=== PATIENT | female | born 1955 | race Caucasian/White ===

== ENCOUNTER 2016-08-26 07:56 | Day surgery (SDC) | payer BC ==
[~2016-08-26 07:56] MED LIST: Midazolam 1 MG/ML 2 ML SDV ONE; Propofol 200 MG/20 ML SDV ONE; fentaNYL 100 MCG/2 ML SDV ONE
[2016-08-26] MEDS ORDERED: Glycopyrrolate 0.2 MG/ML 2 ML SYRINGE IVPUSH ONE (08:45)
[2016-08-26] MEDS ORDERED: Dextrose 5%-Lactated Ringers 1,000 ML IV SCH (08:45)
[2016-08-26] MEDS ORDERED: Pantoprazole 40 MG Vial IVPUSH ONE (10:30)
[2016-08-26] MEDS ORDERED: Hydrocortisone Sodium Succinate 100 MG/2 ML SDV IVPUSH PRN (10:37)
[2016-08-26] MEDS ORDERED: diphenhydrAMINE 50 MG/ML SDV IVPUSH PRN (10:38)
[2016-08-26] MEDS ORDERED: Famotidine 20 MG/2 ML SDV IVPUSH PRN (10:39)
[2016-08-26] MEDS ORDERED: Hydrocortisone Sodium Succinate 100 MG/2 ML SDV IVPUSH ONE (10:45)
[2016-08-26] MEDS ORDERED: Sodium Chloride 0.9% 1,000 ML IV SCH (10:45)
[2016-08-26] MEDS ORDERED: Cyanocobalamin (Vitamin B12) 1,000 MCG/ML SDV IM ONE (11:00)
[2016-08-26 13:00] VITALS: BP 124/62
--- NOTE | 2016-08-27 09:42 | OR ---
DATE OF PROCEDURE: 08/26/2016 PREOPERATIVE DIAGNOSIS: Probable upper gastrointestinal bleeding. POSTOPERATIVE DIAGNOSES: Probable gastrointestinal bleeding from bypassed stomach or duodenum. OPERATIVE PROCEDURE: Upper GI endoscopy with biopsy of gastric pouch for CLOtest. ANESTHESIA: IV sedation. INDICATION FOR PROCEDURE: This is a 61-year-old status post Bret-en-Y gastric bypass, presenting with a history of black tarry stools and hemoglobin down in the 6 range. Stools are lightening up in the last few days, and hemoglobin today is 8.9 with a ferritin of 11. The plan will be to proceed with upper GI endoscopy with biopsies as indicated. Potential risks including bleeding and perforation were discussed, and the patient wishes to proceed. NARRATIVE: The patient was taken to the operating room, placed in a left lateral decubitus position. IV sedation was administered, after which the upper GI endoscope was passed orally through the length of the esophagus and into the gastric pouch and from there through the gastric pouch and into the gastrojejunostomy and 20 cm into the Bret limb. Findings were entirely normal on this exam. There are no areas of inflammation, blood or bleeding, and no stricturing identified. Biopsies were obtained from the gastric pouch for CLOtest for H. pylori. Minimal bleeding from the biopsy site was seen, and the procedure was then concluded. The patient was taken to the recovery room in satisfactory condition. The patient with quite reliable history of black stools is probably having some bleeding from the bypassed stomach and duodenum. Given this we will initiate proton pump inhibitor use, we gave her Protonix 40 mg IV in the recovery room and then 40 mg daily and repeating hemoglobin in one week. With the ferritin being 11, it is very difficult, if not impossible, to restore adequate iron levels orally after gastric bypass. Given this, we will give her 500 mg of Ferraheme in ACU and also vitamin B12. We have already started her on Protonix 40 mg a day and Vitron C one tablet daily. She will be following up with the hemoglobin in one week and with Saima Caballero in [facility] in two weeks. Stefan Lau MD /[id number]
== END 2016-08-26 14:00 | disposition home or self-care (01) ==
LOC: JP.SDS 07:56
PROVIDERS: ATTEND Surgery
DX: R19.5 Other fecal abnormalities (principal); I10 Essential (primary) hypertension; E11.9 Type 2 diabetes mellitus without complications; K21.9 Gastro-esophageal reflux disease without esophagitis; E78.5 Hyperlipidemia, unspecified; F32.9 Major depressive disorder, single episode, unspecified; Z98.84 Bariatric surgery status; Z88.1 Allergy status to other antibiotic agents; Z88.8 Allergy status to other drugs, medicaments and biological substances; Z91.09 Other allergy status, other than to drugs and biological substances
CPT/HCPCS: 36415; 43239; 82728; 85027; 87081; C9113; J1720; J2250; J2704; J3010; J3420; J7030; J7040; J7042; Q0138

== ENCOUNTER 2018-06-19 12:25 | Emergency (ER) | payer BC ==
[2018-06-19 13:07] VITALS: BP 163/63
[2018-06-19] MEDS ORDERED: Acetaminophen/HYDROcodone 325-5 MG Tab PO ONE (13:49)
--- NOTE | 2018-06-19 13:55 | EDM.PDOC ---
ED HPI GENERAL MEDICAL PROBLEM - General Chief Complaint: Back Pain or Injury Stated Complaint: BACK PAIN Time Seen by Provider: 06/19/18 13:40 Source of Information: Reports: Patient, Old Records History Limitations: Reports: No Limitations - History of Present Illness INITIAL COMMENTS - FREE TEXT/NARRATIVE: 63 yo female here an exacerbation of chronic low back pain. Has had several lumbar disc herniations. Has had procedures on her back. Recently was moving some heavy bags from her house to the garage and subsequently noted an increase in right sided low back pain and some numbness to the R thigh intermittently. 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 (see below) (Tizanidine, minimal benefit) Lower Back Pain Score (Numeric/FACES): 8 - Related Data Allergies Allergy/AdvReac Type Severity Reaction Status Date / Time adhesive Allergy Rash Verified 08/26/16 08:37 adhesive tape Allergy Rash Verified 08/26/16 08:37 atorvastatin Allergy Cannot Verified 08/26/16 08:37 Remember ciprofloxacin Allergy Cannot Verified 08/26/16 08:37 Remember codeine Allergy Cannot Verified 08/26/16 08:37 Remember influenza virus vaccine, Allergy Cannot Verified 08/26/16 08:37 specific Remember [influenza virus vacc,specific] latex Allergy Cannot Verified 08/26/16 08:37 Remember levofloxacin [From Levaquin] Allergy Cannot Verified 08/26/16 08:37 Remember liraglutide [From Victoza] Allergy Cannot Verified 08/26/16 08:37 Remember metformin Allergy Cannot Verified 08/26/16 08:37 Remember prochlorperazine edisylate Allergy Cannot Verified 08/26/16 08:37 [From Compazine] Remember prochlorperazine maleate Allergy Cannot Verified 08/26/16 08:37 [From Compazine] Remember promethazine Allergy Cannot Verified 08/26/16 08:37 Remember tetracycline Allergy Cannot Verified 08/26/16 08:37 Remember tramadol Allergy Cannot Verified 08/26/16 08:37 Remember Home Meds: Home Meds Acyclovir [Zovirax] 400 mg PO BID 03/28/14 [History] Aspirin/Caffeine [Amanuel Back-Body 500-32.5 mg] 2 tab PO BID PRN 03/28/14 [ History] Cholecalciferol (Vitamin D3) [Vitamin D3] 2,000 units PO DAILY 03/28/14 [History ] Cyanocobalamin (Vitamin B12) [Vitamin B12] 1,000 mcg PO DAILY 03/28/14 [History] Insulin Detemir [Levemir] 12 units SQ BEDTIME 03/28/14 [History] Magnesium Oxide [Magnesium] 400 mg PO DAILY 03/28/14 [History] Multivitamin [Multivitamins] 1 tab PO BID 03/28/14 [History] Triamcinolone Acetonide [Kenalog 0.1% Crm] 1 applic TOP BID PRN 03/28/14 [ History] Vitamin B Complex [B Complex] 1 cap PO DAILY 03/28/14 [History] tiZANidine HCl [Zanaflex] 4 mg PO TID PRN 03/28/14 [History] FLUoxetine [PROzac] 20 mg PO DAILY 08/11/14 [History] Acetaminophen [Tylenol Extra Strength] 1 tab PO Q4H PRN 12/26/14 [History] Chlorpheniramine Maleate [Chlor-Trimeton] 1 tab PO Q4H PRN 12/26/14 [History] Chlorpheniramine/Pseudoephed [Sudogest Cold & Allergy] 1 each PO DAILY 12/26/14 [History] Insulin Aspart [NovoLOG] 1 dose SUBCUT ASDIRECTED 11/29/15 [History] Acetaminophen/HYDROcodone [[place] 325-5 MG] 1 - 2 tab PO Q6H PRN #20 tab [Rx] Carisoprodol [Soma] 350 mg PO QID PRN #20 tablet 06/19/18 [Rx] Past Medical History HEENT History: Reports: Allergic Rhinitis, Sinusitis Other HEENT History: adenoids Cardiovascular History: Reports: High Cholesterol Gastrointestinal History: Reports: Cholelithiasis, Chronic Constipation, Chronic Diarrhea, GERD, Irritable Bowel Syndrome Genitourinary History: Reports: UTI, Recurrent Other Genitourinary History: chronic hematuria, cysts on kidneys and polyps removed frm urethra 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: Endometriosis, Polycystic Ovaries, Musculoskeletal History: Reports: Fibromyalgia, Osteoarthritis, Other (See Below ) Other Musculoskeletal History: R shoulder pain Neurological History: Reports: Migraines Psychiatric History: Reports: Depression Endocrine/Metabolic History: Reports: Diabetes, Type II, Obesity/BMI 30+ Other Endocrine/Metabolic History: takes insulin Hematologic History: Reports: Anemia, B12 Deficiency Other 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, connective tissue disease Dermatologic History: Reports: Other (See Below) Other Dermatologic History: butterfly rash on face after sun exposer - Infectious Disease History Infectious Disease History: Reports: Chicken Pox, Measles, Mumps - Past Surgical History HEENT Surgical History: Reports: Adenoidectomy, Tonsillectomy Cardiovascular Surgical History: Reports: Other (See Below) Other Cardiovascular Surgeries/Procedures: cath GI Surgical History: Reports: Bariatric Procedure, Cholecystectomy, Colonoscopy , EGD Female Surgical History: Reports: Hysterectomy Endocrine Surgical History: Reports: None Neurological Surgical History: Reports: Laminectomy Other Musculoskeletal Surgeries/Procedures:: back surgery 2009 laminectomy Dermatological Surgical History: Reports: None Social & Family History - Tobacco Use Smoking Status *Q: Never Smoker - Caffeine Use Caffeine Use: Reports: Coffee - Recreational Drug Use Recreational Drug Use: No ED ROS GENERAL - Review of Systems Review Of Systems: See Below Constitutional: Reports: No Symptoms Musculoskeletal: Reports: Back Pain (low back on the right. ) Skin: Reports: No Symptoms Neurological: Reports: Numbness (R thigh intermittently) ED EXAM,LOWER BACK PAIN/INJURY - Physical Exam Exam: See Below Exam Limited By: No Limitations General Appearance: Alert, WD/WN, No Apparent Distress Back Exam: Normal Inspection, Decreased Range of Motion, Muscle Spasm (R lumbar paraspinous), Paraspinal Tenderness (R lumbar). No: CVA Tenderness (R), CVA Tenderness (L), Vertebral Tenderness Extremities: Normal Inspection, Normal Range of Motion, Non-Tender, No Pedal Edema Neurological: Alert, Normal Mood/Affect, Normal Dorsiflexion, CN II-XII Intact, No Motor/Sensory Deficits, Oriented x 3 DTR - Lower Extremities: 1+: Knee (R), Knee (L), Ankle (R), Ankle (L) Psychiatric: Normal Affect, Normal Mood Skin Exam: Warm, Dry, Intact, Normal Color, No Rash Course - Vital Signs Last Recorded V/S: Last Vital Signs Temp 36.1 C 06/19/18 13:07 Pulse 83 06/19/18 13:07 Resp 16 06/19/18 13:07 BP 163/63 H 06/19/18 13:07 Pulse Ox 99 06/19/18 13:07 - Orders/Labs/Meds Orders: Active Orders 24 hr Category Date Time Status Acetaminophen/HYDROcodone [[place] 325-5 MG] Med 06/19/18 13:49 Once 1 tab PO ONETIME ONE Departure - Departure Time of Disposition: 13:54 Disposition: Home, Self-Care 01 Condition: Fair Clinical Impression: Acute exacerbation of chronic low back pain - Discharge Information *PRESCRIPTION DRUG MONITORING PROGRAM REVIEWED*: No *COPY OF PRESCRIPTION DRUG MONITORING REPORT IN PATIENT ACNDACE: No Prescriptions: Acetaminophen/HYDROcodone [[place] 325-5 MG] 1 - 2 tab PO Q6H PRN #20 tab PRN Reason: Pain Carisoprodol [Soma] 350 mg PO QID PRN #20 tablet PRN Reason: Pain Instructions: Acute Back Pain, Adult Referrals: PCP,None [Primary Care Provider] - Additional Instructions: Use Soma and [place] as directed. Avoid lifting, bending or twisting. F/U with orthopedics [facility]. Return here as needed. - My Orders Last 24 Hours: My Active Orders 06/19/18 13:49 Acetaminophen/HYDROcodone [[place] 325-5 MG] 1 tab PO ONETIME ONE - Assessment/Plan Last 24 Hours: My Active Orders 06/19/18 13:49 Acetaminophen/HYDROcodone [[place] 325-5 MG] 1 tab PO ONETIME ONE
== END 2018-06-19 14:20 | disposition home or self-care (01) ==
LOC: JP.ED 12:25
DX: M54.5 Low back pain (principal); G89.29 Other chronic pain; Z88.8 Allergy status to other drugs, medicaments and biological substances; Z79.899 Other long term (current) drug therapy; Z79.82 Long term (current) use of aspirin
CPT/HCPCS: 99283; A9270

== ENCOUNTER 2018-08-25 22:33 | Emergency (ER) | payer BC, OTHER ==
[2018-08-25 22:46] VITALS: BP 164/85; PULSE 78
--- NOTE | 2018-08-25 23:08 | EDM.PDOC ---
ED HPI GENERAL MEDICAL PROBLEM - General Chief Complaint: Body Fluid Exposure Stated Complaint: STUCK WITH USED NEEDLE Time Seen by Provider: 08/25/18 23:04 Source of Information: Reports: Patient History Limitations: Reports: No Limitations - History of Present Illness INITIAL COMMENTS - FREE TEXT/NARRATIVE: PT HAS A NEEDLE STICK ON HER LEFT POITER FINGER. sHE HAD GLOVES ON AND THE PT STARTED TO MOVE AND SHE WAS STUCK. Onset: Today, Sudden Location: Reports: Upper Extremity, Left Associated Symptoms: Reports: No Other Symptoms - Related Data Allergies Allergy/AdvReac Type Severity Reaction Status Date / Time adhesive Allergy Rash Verified 08/26/16 08:37 adhesive tape Allergy Rash Verified 08/26/16 08:37 atorvastatin Allergy Cannot Verified 08/26/16 08:37 Remember ciprofloxacin Allergy Cannot Verified 08/26/16 08:37 Remember codeine Allergy Cannot Verified 08/26/16 08:37 Remember influenza virus vaccine, Allergy Cannot Verified 08/26/16 08:37 specific Remember [influenza virus vacc,specific] latex Allergy Cannot Verified 08/26/16 08:37 Remember levofloxacin [From Levaquin] Allergy Cannot Verified 08/26/16 08:37 Remember liraglutide [From Victoza] Allergy Cannot Verified 08/26/16 08:37 Remember metformin Allergy Cannot Verified 08/26/16 08:37 Remember prochlorperazine edisylate Allergy Cannot Verified 08/26/16 08:37 [From Compazine] Remember prochlorperazine maleate Allergy Cannot Verified 08/26/16 08:37 [From Compazine] Remember promethazine Allergy Cannot Verified 08/26/16 08:37 Remember tetracycline Allergy Cannot Verified 08/26/16 08:37 Remember tramadol Allergy Cannot Verified 08/26/16 08:37 Remember Home Meds: Home Meds Cholecalciferol (Vitamin D3) [Vitamin D3] 2,000 units PO DAILY 03/28/14 [History ] Cyanocobalamin (Vitamin B12) [Vitamin B12] 1,000 mcg PO DAILY 03/28/14 [History] Insulin Detemir [Levemir] 12 units SQ BEDTIME 03/28/14 [History] Magnesium Oxide [Magnesium] 400 mg PO DAILY 03/28/14 [History] Multivitamin [Multivitamins] 1 tab PO BID 03/28/14 [History] Triamcinolone Acetonide [Kenalog 0.1% Crm] 1 applic TOP BID PRN 03/28/14 [ History] Vitamin B Complex [B Complex] 1 cap PO DAILY 03/28/14 [History] tiZANidine HCl [Zanaflex] 4 mg PO TID PRN 03/28/14 [History] Acetaminophen [Tylenol Extra Strength] 1 tab PO Q4H PRN 12/26/14 [History] Chlorpheniramine Maleate [Chlor-Trimeton] 1 tab PO Q4H PRN 12/26/14 [History] Chlorpheniramine/Pseudoephed [Sudogest Cold & Allergy] 1 each PO DAILY 12/26/14 [History] Insulin Aspart [NovoLOG] 1 dose SUBCUT ASDIRECTED 11/29/15 [History] Acetaminophen/HYDROcodone [[place] 325-5 MG] 1 - 2 tab PO Q6H PRN #20 tab [Rx] Carisoprodol [Soma] 350 mg PO QID PRN #20 tablet 06/19/18 [Rx] Hydrocodone/Acetaminophen [[place] 5-325 Tablet] 1 each PO Q6HR PRN #28 tablet 11/02 [Rx] methylPREDNISolone [Medrol] 4 mg PO ASDIRECTED #1 dosepk 06/22/18 [Rx] Past Medical History HEENT History: Reports: Allergic Rhinitis, Sinusitis Other HEENT History: adenoids Cardiovascular History: Reports: High Cholesterol Gastrointestinal History: Reports: Cholelithiasis, Chronic Constipation, Chronic Diarrhea, GERD, Irritable Bowel Syndrome Genitourinary History: Reports: UTI, Recurrent Other Genitourinary History: chronic hematuria, cysts on kidneys and polyps removed frm urethra 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: Endometriosis, Polycystic Ovaries, Musculoskeletal History: Reports: Fibromyalgia, Osteoarthritis, Other (See Below ) Other Musculoskeletal History: R shoulder pain Neurological History: Reports: Migraines Psychiatric History: Reports: Depression Endocrine/Metabolic History: Reports: Diabetes, Type II, Obesity/BMI 30+ Other Endocrine/Metabolic History: takes insulin Hematologic History: Reports: Anemia, B12 Deficiency Other 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, connective tissue disease Dermatologic History: Reports: Other (See Below) Other Dermatologic History: butterfly rash on face after sun exposer - Infectious Disease History Infectious Disease History: Reports: Chicken Pox, Measles, Mumps - Past Surgical History HEENT Surgical History: Reports: Adenoidectomy, Tonsillectomy Cardiovascular Surgical History: Reports: Other (See Below) Other Cardiovascular Surgeries/Procedures: cath GI Surgical History: Reports: Bariatric Procedure, Cholecystectomy, Colonoscopy , EGD Female Surgical History: Reports: Hysterectomy Neurological Surgical History: Reports: Laminectomy Other Musculoskeletal Surgeries/Procedures:: back surgery 2009 laminectomy Social & Family History - Caffeine Use Caffeine Use: Reports: Coffee ED ROS GENERAL - Review of Systems Review Of Systems: See Below Constitutional: Reports: No Symptoms HEENT: Reports: No Symptoms Respiratory: Reports: No Symptoms Cardiovascular: Reports: No Symptoms Endocrine: Reports: No Symptoms GI/Abdominal: Reports: No Symptoms : Reports: No Symptoms Musculoskeletal: Reports: Other (NEEDLE STICK TO THE LEFT POINTER FINGER. tHRE I SLIGHT SWELLING. ) Skin: Reports: No Symptoms Neurological: Reports: No Symptoms ED EXAM, GENERAL - Physical Exam Exam: See Below Free Text/Narrative:: PT HAD A NEEDLE STICK TO THE LEFT POINTER FINGER Exam Limited By: Intoxication General Appearance: Alert Extremities: Other ( FINGER MILD SWELLING. ) Course - Vital Signs Last Recorded V/S: Last Vital Signs Temp 35.9 C 08/25/18 22:45 Pulse 78 08/25/18 22:45 Resp 16 08/25/18 22:45 BP 164/85 H 08/25/18 22:45 Pulse Ox 98 08/25/18 22:45 - Re-Assessments/Exams Free Text/Narrative Re-Assessment/Exam: 08/25/18 23:13 ROUNTINE NEEDLE STICK LABS WERE DRAWN Departure - Departure Time of Disposition: 23:06 Disposition: Home, Self-Care 01 Condition: Fair Clinical Impression: Needle stick injury - Discharge Information Instructions: Needlestick Injury, [id number] Referrals: PCP,None [Primary Care Provider] - Forms: ED Department Discharge Care Plan Goals: SOAK FINGER WATCH FOR INFECTION
== END 2018-08-25 23:12 | disposition home or self-care (01) ==
LOC: JP.ED 22:33
DX: S61.231A Puncture wound without foreign body of left index finger without damage to nail, initial encounter (principal); E11.9 Type 2 diabetes mellitus without complications; E66.9 Obesity, unspecified; W45.8XXA Other foreign body or object entering through skin, initial encounter; Z68.31 Body mass index [BMI] 31.0-31.9, adult; Z79.4 Long term (current) use of insulin
CPT/HCPCS: 99282

== ENCOUNTER 2020-12-25 13:43 | Emergency (ER) | payer BC ==
[2020-12-25 13:53] VITALS: BP 147/67; PULSE 88
[2020-12-25] MEDS ORDERED: Ondansetron 4 MG Tab.DIS PO ONE (14:28)
--- NOTE | 2020-12-25 14:57 | EDM.PDOC ---
ED HPI GENERAL MEDICAL PROBLEM - General Chief Complaint: Gastrointestinal Problem Stated Complaint: COVID, SOB Time Seen by Provider: 12/25/20 14:19 Source of Information: Reports: Patient, RN Notes Reviewed History Limitations: Reports: No Limitations - History of Present Illness INITIAL COMMENTS - FREE TEXT/NARRATIVE: 65-year-old female presents emergency department today with complaints of shortness of breath and a black tarry stool, she was recently diagnosed with Covid 6 days ago does have a known history of GI bleed in the past and usually by avoiding NSAIDs can keep this under control however she has used some NSAIDs because of the Covid and now yesterday she had a black tarry stool. She is not having any other symptoms had 1 stool today which was discolored as well. - Related Data Allergies Allergy/AdvReac Type Severity Reaction Status Date / Time adhesive Allergy Rash Verified 12/25/20 13:53 adhesive tape Allergy Rash Verified 12/25/20 13:53 atorvastatin Allergy Cannot Verified 12/25/20 13:53 Remember ciprofloxacin Allergy Cannot Verified 12/25/20 13:53 Remember codeine Allergy Cannot Verified 12/25/20 13:53 Remember influenza virus vaccine, Allergy Cannot Verified 12/25/20 13:53 specific Remember [influenza virus vacc,specific] latex Allergy Cannot Verified 12/25/20 13:53 Remember levofloxacin [From Levaquin] Allergy Cannot Verified 12/25/20 13:53 Remember liraglutide [From Victoza] Allergy Cannot Verified 12/25/20 13:53 Remember metformin Allergy Cannot Verified 12/25/20 13:53 Remember prochlorperazine edisylate Allergy Cannot Verified 12/25/20 13:53 [From Compazine] Remember prochlorperazine maleate Allergy Cannot Verified 12/25/20 13:53 [From Compazine] Remember promethazine Allergy Cannot Verified 12/25/20 13:53 Remember tetracycline Allergy Cannot Verified 12/25/20 13:53 Remember tramadol Allergy Cannot Verified 12/25/20 13:53 Remember Home Meds: Home Meds Cholecalciferol (Vitamin D3) [Vitamin D3] 2,000 units PO DAILY 03/28/14 [History] Cyanocobalamin (Vitamin B12) [Vitamin B12] 1,000 mcg PO DAILY 03/28/14 [History] Magnesium Oxide [Magnesium] 400 mg PO DAILY 03/28/14 [History] Multivitamin [Multivitamins] 1 tab PO BID 03/28/14 [History] Triamcinolone Acetonide [Kenalog 0.1% Crm] 1 applic TOP BID PRN 03/28/14 [History] Vitamin B Complex [B Complex] 1 cap PO DAILY 03/28/14 [History] tiZANidine HCl [Zanaflex] 4 mg PO TID PRN 03/28/14 [History] Acetaminophen [Tylenol Extra Strength] 1 tab PO Q4H PRN 12/26/14 [History] Insulin Aspart [NovoLOG] 1 dose SUBCUT ASDIRECTED 11/29/15 [History] Aspirin [Ecotrin EC] 81 mg PO DAILY 09/05/20 [History] Famotidine [Pepcid] 20 mg PO DAILY 09/05/20 [History] Insulin Lispro [HumaLOG] 1 dose SQ .PER SLIDING SCALE 09/05/20 [History] Iron,Carbonyl/Ascorbic Acid [Iron 100-Vitamin C Tablet] 1 tab PO DAILY 09/05/20 [History] Dextroamphetamine/Amphetamine [Adderall 20 mg Tablet] 20 mg PO BID 09/09/20 [History] Naproxen Sodium [Aleve] 220 mg PO Q8HR PRN 09/09/20 [History] Acetaminophen/HYDROcodone [HYDROcodone-Acetaminophen 5-325 MG *] 1 tab PO Q6H PRN #10 each 12/25/20 [Rx] Ondansetron [Zofran ODT] 4 mg PO Q6H PRN #10 tab.dis 12/25/20 [Rx] Past Medical History HEENT History: Reports: Allergic Rhinitis, Sinusitis Other HEENT History: adenoids Cardiovascular History: Reports: High Cholesterol Gastrointestinal History: Reports: Cholelithiasis, Chronic Constipation, Chronic Diarrhea, GERD, Irritable Bowel Syndrome Genitourinary History: Reports: UTI, Recurrent Other Genitourinary History: chronic hematuria, cysts on kidneys and polyps removed frm urethra [employer] History: Reports: Endometriosis, Polycystic Ovaries, Musculoskeletal History: Reports: Fibromyalgia, Osteoarthritis, Other (See Below) Other Musculoskeletal History: R shoulder pain. 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, connective tissue disease Dermatologic History: Reports: Other (See Below) Other Dermatologic History: butterfly rash on face after sun exposer - Infectious Disease History Infectious Disease History: Reports: Chicken Pox, Measles, Mumps - Past Surgical History HEENT Surgical History: Reports: Adenoidectomy, Tonsillectomy Cardiovascular Surgical History: Reports: Other (See Below) Other Cardiovascular Surgeries/Procedures: cath GI Surgical History: Reports: Bariatric Procedure, Cholecystectomy, Colonoscopy, EGD Other GI Surgeries/Procedures: lap band Female Surgical History: Reports: Hysterectomy Endocrine Surgical History: Reports: None Neurological Surgical History: Reports: Laminectomy Other Musculoskeletal Surgeries/Procedures:: back surgery 2009 laminectomy Dermatological Surgical History: Reports: None Social & Family History - Tobacco Use Tobacco Use Status *Q: Never Tobacco User Second Hand Smoke Exposure: No - Caffeine Use Caffeine Use: Reports: None - Recreational Drug Use Recreational Drug Use: No ED ROS GENERAL - Review of Systems Review Of Systems: See Below Constitutional: Reports: Fever, Weakness, Fatigue HEENT: Reports: No Symptoms Respiratory: Reports: Shortness of Breath Cardiovascular: Reports: Dyspnea on Exertion GI/Abdominal: Reports: Black Stool, Nausea. Denies: Abdominal Pain, Vomiting : Reports: No Symptoms ED EXAM, GI/ABD - Physical Exam Exam: See Below Exam Limited By: No Limitations General Appearance: Alert, WD/WN, No Apparent Distress Respiratory/Chest: No Respiratory Distress, Lungs Clear, Normal Breath Sounds, No Accessory Muscle Use, Chest Non-Tender Cardiovascular: Regular Rate, Rhythm, No Murmur GI/Abdominal Exam: Soft, Non-Tender Course - Vital Signs Last Recorded V/S: Last Vital Signs Temp 98.4 F 12/25/20 13:51 Pulse 88 12/25/20 13:51 Resp 24 H 12/25/20 13:51 BP 147/67 H 12/25/20 13:51 Pulse Ox 96 12/25/20 13:51 - Orders/Labs/Meds Labs: Laboratory Tests 12/25/20 12/25/20 Range/Units 14:44 14:44 WBC 4.2 L (4.5-11.0) K/uL RBC 4.01 (3.30-5.50) M/uL Hgb 11.0 L D (12.0-15.0) g/dL Hct 34.4 L (36.0-48.0) % MCV 86 (80-98) fL MCH 27 (27-31) pg MCHC 32 (32-36) % Plt Count 203 (150-400) K/uL Neut % (Auto) 63.7 (36-66) % Lymph % (Auto) 27.3 (24-44) % Brooks % (Auto) 8.3 H (2-6) % Eos % (Auto) 0.2 L (2-4) % Baso % (Auto) 0.5 (0-1) % Sodium 138 L (140-148) mmol/L Potassium 3.6 (3.6-5.2) mmol/L Chloride 100 (100-108) mmol/L Carbon Dioxide 29 (21-32) mmol/L Anion Gap 12.6 (5.0-14.0) mmol/L BUN 13 (7-18) mg/dL Creatinine 0.8 (0.6-1.0) mg/dL Est Cr Clr Drug Dosing 57.22 mL/min Estimated GFR (MDRD) > 60 (>60) Glucose 130 H (74-106) mg/dL Calcium 8.6 (8.5-10.1) mg/dL Meds: Medications Discontinued Medications Generic Name Dose Route Start Last Admin Trade Name Freq PRN Reason Stop Dose Admin Ondansetron HCl 4 mg 12/25/20 14:28 12/25/20 14:53 Ondansetron 4 Mg Tab.Dis PO 12/25/20 14:29 4 mg ONETIME ONE Administration Departure - Departure Time of Disposition: 15:34 Disposition: Home, Self-Care 01 Condition: Fair Clinical Impression: COVID-19 - Discharge Information Prescriptions: Acetaminophen/HYDROcodone [HYDROcodone-Acetaminophen 5-325 MG *] 1 tab PO Q6H PRN #10 each PRN Reason: Pain Ondansetron [Zofran ODT] 4 mg PO Q6H PRN #10 tab.dis PRN Reason: Nausea Instructions: 10 Things You Can Do to Manage Your COVID-19 Symptoms at Home - [facility] (08/29/2020) Referrals: PCP,Unknown [Primary Care Provider] - Forms: ED Department Discharge Additional Instructions: Use Zofran as needed for nausea and vomiting symptoms, continue to use Tylenol for baseline pain control use hydrocodone for breakthrough pain be mindful not to exceed 4000 mg of Tylenol in a 24-hour., Please followup with your primary care provider in 7-10 days if not better, please call return to the emergency department with worsening of symptoms. Sepsis Event Note (ED) - Evaluation Sepsis Screening Result: No Definite Risk - Focused Exam Vital Signs: Vital Signs Temp Pulse Resp BP Pulse Ox 12/25/20 13:51 98.4 F 88 24 H 147/67 H 96 - Assessment/Plan Plan: Assessment Acuity = acute Site and laterality = viral syndrome complicated patient with black tarry stools Etiology = COVID-19 Manifestations = none Location of injury = Home Lab values = hemoglobin low 11.0 consistent with normochromic anemia BMP within normal limits Plan She declined monoclonal antibody treatment, Zofran did provide some relief prescription for Zofran 4 mg ODT 1 tab p.o. 3 times daily as needed total #10 as well as hydrocodone 5/325 1 tab p.o. 3 times daily total #10 faxed to [facility] pharmacy, she will continue with symptomatic care follow-up primary care in 7 to 10 days if not better. I did offer her endoscopy for her black tarry schools but she declined at this time will discuss this with her primary care This note was dictated using [employer] voice recognition software please call with any questions on syntax or grammar.
== END 2020-12-25 15:56 | disposition home or self-care (01) ==
LOC: JP.ED 13:43
DX: U07.1 COVID-19 (principal); E78.00 Pure hypercholesterolemia, unspecified; E11.9 Type 2 diabetes mellitus without complications; K21.9 Gastro-esophageal reflux disease without esophagitis; E66.9 Obesity, unspecified; Z68.44 Body mass index [BMI] 60.0-69.9, adult; Z91.048 Other nonmedicinal substance allergy status; Z88.5 Allergy status to narcotic agent; Z88.1 Allergy status to other antibiotic agents; Z88.7 Allergy status to serum and vaccine; Z91.040 Latex allergy status; Z79.82 Long term (current) use of aspirin; Z79.4 Long term (current) use of insulin
CPT/HCPCS: 36415; 80048; 85025; 99284; A9270

== ENCOUNTER 2021-11-12 06:20 | Day surgery (SDC) | payer BC ==
[2021-11-12] MEDS: Scopolamine 1.5 MG Transdermal Patch TRDERM SCH (07:28)
[2021-11-12] MEDS ORDERED: fentaNYL 100 MCG/2 ML SDV ONE (07:36)
[2021-11-12] MEDS ORDERED: Propofol 200 MG/20 ML SDV ONE ×2 (07:36→08:50)
[2021-11-12] MEDS ORDERED: Midazolam 1 MG/ML 2 ML SDV ONE (07:36)
[2021-11-12] MEDS ORDERED: Ondansetron 4 MG/2 ML SDV ONE (07:36)
[2021-11-12] MEDS: Dextrose 5%-Lactated Ringers 1,000 ML IV SCH (07:38)
[2021-11-12 07:41] LABS: ESTIMATED GFR 81 mL/min (>60)
[2021-11-12 10:44] VITALS: BP 140/70; PULSE 72
== END 2021-11-12 10:59 | disposition home or self-care (01) ==
LOC: JP.SDS 06:20
PROVIDERS: ATTEND Surgery
DX: D50.9 Iron deficiency anemia, unspecified (principal); K64.4 Residual hemorrhoidal skin tags; K62.3 Rectal prolapse; I10 Essential (primary) hypertension; K21.9 Gastro-esophageal reflux disease without esophagitis; E11.9 Type 2 diabetes mellitus without complications; F32.A Depression, unspecified; Z98.84 Bariatric surgery status; Z91.040 Latex allergy status
CPT/HCPCS: 36415; 80053; 82306; 82525; 82728; 83735; 84100; 84590; 84630; 85027; A9270-GY; J2250; J2405; J2704; J3010; J7121

== ENCOUNTER → 2021-11-20 | Day surgery (SDC) | payer BC ==
[~2021-11-20] MED LIST changes: +Acetaminophen 500 MG Tab PO ONE; +Bupivacaine 0.5% 50 ML MDV ONE; +Dexamethasone 4 MG/ML SDV ONE; +Dextrose 5%-Lactated Ringers 1,000 ML IV SCH; +Lidocaine 1% with EPINEPHrine 1:100,000 50 ML MDV ONE; +Meropenem 500 MG in Sodium Chloride 0.9% 50 ML IV ONE; -Midazolam 1 MG/ML 2 ML SDV ONE; +Ondansetron 4 MG/2 ML SDV ONE; +Rocuronium 50 MG/5 ML Vial ONE; +Scopolamine 1.5 MG Transdermal Patch TOP ONE; +Succinylcholine 200 MG/10 ML MDV ONE; +ePHEDrine 50 MG/ML SDV ONE
[2021-12-15 21:31] LABS: ESTIMATED GFR 95 mL/min (>60)
[2021-12-15 22:01] LABS: HEMOGLOBIN A1C 4.8 % (4.5-6.2)
== END ==
LOC: JP.SDS 06:00
PROVIDERS: ATTEND Surgery
DX: K62.3 Rectal prolapse (principal); K64.8 Other hemorrhoids; I10 Essential (primary) hypertension; E78.5 Hyperlipidemia, unspecified; E11.9 Type 2 diabetes mellitus without complications; K21.9 Gastro-esophageal reflux disease without esophagitis; Z79.899 Other long term (current) drug therapy; Z88.8 Allergy status to other drugs, medicaments and biological substances; Z88.5 Allergy status to narcotic agent; Z88.1 Allergy status to other antibiotic agents; Z91.048 Other nonmedicinal substance allergy status; Z88.0 Allergy status to penicillin
CPT/HCPCS: 36415; 46260; 80053; 82728; 83036; 83735; 84100; 85027; 88304; J3490

== ENCOUNTER 2023-01-02 11:45 | Emergency (ER) | payer BC, MEDICARE ==
[2023-01-02 13:12] VITALS: BP 150/71; PULSE 78
[2023-01-02] MEDS ORDERED: Lidocaine 1% 10 ML MDV INJECT ONE (13:27)
[2023-01-02] MEDS ORDERED: Bacitracin Oint 1 GM U/D Packet TOP ONE (13:53)
== END 2023-01-02 14:06 | disposition home or self-care (01) ==
LOC: JP.ED 11:45
DX: S61.311A Laceration without foreign body of left index finger with damage to nail, initial encounter (principal); K21.9 Gastro-esophageal reflux disease without esophagitis; M19.90 Unspecified osteoarthritis, unspecified site; E11.9 Type 2 diabetes mellitus without complications; E66.9 Obesity, unspecified; Z68.31 Body mass index [BMI] 31.0-31.9, adult; Z88.7 Allergy status to serum and vaccine; Z88.8 Allergy status to other drugs, medicaments and biological substances; Z91.048 Other nonmedicinal substance allergy status; Z88.0 Allergy status to penicillin; Z88.1 Allergy status to other antibiotic agents; Z88.5 Allergy status to narcotic agent; Z91.040 Latex allergy status; Z79.899 Other long term (current) drug therapy; Z79.82 Long term (current) use of aspirin; Z90.49 Acquired absence of other specified parts of digestive tract; Z86.16 Personal history of COVID-19; Z79.4 Long term (current) use of insulin; W26.8XXA Contact with other sharp object(s), not elsewhere classified, initial encounter
CPT/HCPCS: 12001; 99282